=== PATIENT | male | born 1945 | race American Indian/Alaskan Native ===

== ENCOUNTER 2017-09-14 08:10 | Outpatient (CLI) | payer MEDICARE, OTHER ==
[2017-09-14 08:56] LABS: Blood Urea Nitrogen 18 mg/dL (9-20)
--- NOTE | 2017-09-14 10:22 | Cat Scan Report ---
CT lumbar spine with and without IV contrast: Low back pain and left leg pain. Transverse images are obtained from T12-S1 prior to and following IV contrast administration. Coronal and sagittal 2-D reformatted images obtained. The vertebral bodies are normal in alignment with preservation of the vertebral height. Anterior spondylosis is noted from L2-L5. The bones appear adequately mineralized. At T12-L1 there is a bone cyst in the right apophyseal bone with no effect on the articulation. The disc at L4-5 is markedly degenerative. There is no significant narrowing however of the joint space. The apophyseal joints at this level appear to be adequately patent and there is no overt swelling of the nerve roots. The remaining interspaces and discs appear generally unremarkable and the foraminal spaces appear generally adequate. No evidence of spinal stenosis. No evidence of abnormal vascularity with contrast. Impressions: Degenerative L4-5 disc. Recommendation: Consider MRI for more detailed evaluation of the L4-5 level.
== END 2017-09-14 08:11 | disposition home or self-care (01) ==
LOC: CT 08:10
PROVIDERS: ATTEND Internal Medicine
DX: M47.896 Other spondylosis, lumbar region (principal); M54.16 Radiculopathy, lumbar region; F17.210 Nicotine dependence, cigarettes, uncomplicated; I10 Essential (primary) hypertension; M79.605 Pain in left leg; Z95.5 Presence of coronary angioplasty implant and graft
CPT/HCPCS: 36415; 72133; 82565; 84520; Q9967

== ENCOUNTER 2019-10-17 06:22 | Day surgery (SDC) | payer MEDICARE, OTHER ==
[2019-10-17] MEDS ORDERED: SODIUM CHLORIDE 0.9% 1000 ML 1,000 ML IV SCH (07:00)
[2019-10-17] MEDS ORDERED: SODIUM CHLORIDE 0.9% 1000 ML 1,000 ML ONE (07:25)
--- NOTE | 2019-10-17 07:44 | Anesthesia Day of Surgery ---
Anesthesia Day of Surgery - Day of Surgery Patient Examined: Yes Patient H&P Reviewed: Yes Patient is NPO: Yes
--- NOTE | 2019-10-17 07:44 | Anesthesia Consultation ---
Anesthesia Consult and Med Hx Date of service: 10/17/19 - Airway Anesthetic Teeth Evaluation: Good, Partials ROM Head & Neck: Adequate Mental/Hyoid Distance: Adequate Mallampati Class: Class III Intubation Access Assessment: Possibly Difficult - Pulmonary Exam CTA: Yes - Cardiac Exam Cardiac Exam: RRR - Pre-Operative Health Status ASA Pre-Surgery Classification: ASA3 Proposed Anesthetic Plan: MAC - Pulmonary Hx Smoking: Yes (quit 1.5yrs ago) Hx Respiratory Symptoms: No SOB: No - Cardiovascular System Hx Hypertension: Yes Hx Coronary Artery Disease: Yes Hx Angina: No Hx Percutaneous Transluminal Coronary Angioplasty (PTCA): Yes (6yrs ago) Hx Cardia Arrhythmia: No - Central Nervous System CVA: No - Gastrointestinal Hx Gastroesophageal Reflux Disease: No - Endocrine Hx Renal Disease: No Hx Liver Disease: No Hx Insulin Dependent Diabetes: No Hx Non-Insulin Dependent Diabetes: No Hx Thyroid Disease: No - Other Systems Hx Obesity: No - Additional Comments Anesthesia Medical History Comments: No hx anesthetic complications. 4 mets functional capacity. No CP/BLAIR in many years.
[2019-10-17] MEDS ORDERED: propofoL 200 MG/20 ML VIAL IV ONE ×2 (08:16)
--- NOTE | 2019-10-17 08:50 | Procedure Note ---
Date of procedure: 10/17/19 Pre-op diagnosis: Colon Polyp Screening Post-op diagnosis: other (Small,Rectal Polyps (possibly Hyperplastic) otherwise normal colon (no Diverticular disease noted, no Internal Hemorrhoid noted)) Procedure: Colonoscopy with biopsy Anesthesia: MAC Surgeon: EMMANUEL PRADO Estimated blood loss: minimal Pathology: list Specimen disposition: to lab Condition: stable Disposition: same day (Avoid aspirin and NSAID for 4 days; otherwise resume home medication.)
[2019-10-17 10:01] VITALS: BP 148/71
--- NOTE | 2019-10-17 10:11 | Post Anesthesia Evaluation ---
- Post Anesthesia Evaluation Patient Participated: Yes Airway Patent: Yes Stable Respiratory Function: Yes Nausea/Vomiting: No Temp > 96.8F: Yes Pain Manageable: Yes Adequeate Hydration: Yes Anesthesia Complications: No
--- NOTE | 2019-11-01 08:49 | Operative Report ---
PROCEDURE: Colonoscopy with biopsy. INDICATIONS: A 74-year-old gentleman who had a colonoscopy done as part of colon polyp screening. Procedure was done in the GI lab with assistance of Anesthesia and the GI lab team. DESCRIPTION OF PROCEDURE: Initial rectal exam was unremarkable. Instrument was passed through the rectum onto the cecum, which was identified with the ileocecal valve and the appendiceal orifice. Visualization was fair. Cecum, ascending colon, transverse colon, descending colon, and sigmoid showed normal mucosa. There was no evidence of any diverticular disease or any polyp in most of the colon. In the rectum, however, there were several small polyps noted that were possibly hyperplastic that were removed by cold biopsy and on the retroverted view, no internal hemorrhoid was noted. There was minimum bleeding from the biopsy sites. ASSESSMENT: Colon polyp screening. Small rectal polyps, possibly hyperplastic. Otherwise normal colon mucosa. No diverticular disease noted. No internal hemorrhoids noted. The patient will be asked to avoid aspirin and aspirin-related products for the next few days. Otherwise, resume home medication and follow up in the office in 1-2 weeks' time. JOB# [id number] OMI/ROSA
== END 2019-10-17 06:23 | disposition home or self-care (01) ==
LOC: GIO 06:22
DX: Z12.11 Encounter for screening for malignant neoplasm of colon (principal); K62.1 Rectal polyp; F17.210 Nicotine dependence, cigarettes, uncomplicated; I25.10 Atherosclerotic heart disease of native coronary artery without angina pectoris; E78.00 Pure hypercholesterolemia, unspecified; I10 Essential (primary) hypertension; Z98.890 Other specified postprocedural states; Z79.82 Long term (current) use of aspirin; Z79.899 Other long term (current) drug therapy; Z95.5 Presence of coronary angioplasty implant and graft
CPT/HCPCS: 45380; 88305; J2704; J7030

== ENCOUNTER 2020-12-08 10:00 | Emergency (ER) | payer MEDICARE, OTHER ==
[2020-12-08 10:56] VITALS: BP 115/82
--- NOTE | 2020-12-08 11:08 | Emergency Department Report ---
- General Chief complaint: Skin/Abscess/Foreign Body Stated complaint: BOIL BEHIND (L) EAR BUSTED Time Seen by Provider: 12/08/20 11:07 Source: patient Mode of arrival: Ambulatory Limitations: No Limitations - History of Present Illness Initial comments: Patient is a 75-year-old male presents emergency room with complaints of an abscess behind the left ear that began 5 to 6 days ago. He states that last night it opened and drained on its own. He states that he has had this multiple times in the same area. He denies any ear pain, fever, nausea, vomiting, diarrhea, chills. He denies any medication allergies. PMHx HTN and HLD. - Related Data Home Medications Medication Instructions Recorded Confirmed Last Taken Aspirin [Aspirin TAB] 325 mg PO DAILY 07/29/14 07/29/14 10/12/19 09:00 Pravastatin [Pravachol] 40 mg PO QHS 07/29/14 07/29/14 10/14/19 20:00 lisinopriL [Zestril] 20 mg PO QDAY 07/29/14 07/29/14 10/12/19 09:00 Previous Rx's Medication Instructions Recorded Last Taken Type Ibuprofen [Motrin 600 MG tab] 600 mg PO Q8H PRN #20 tablet 07/29/14 10/12/19 17:00 Rx traMADoL [Ultram] 50 mg PO Q6HR PRN #10 tablet 07/29/14 Unknown Rx Clindamycin [Clindamycin CAP] 450 mg PO BID 7 Days #63 capsule 12/08/20 Unknown Rx Mupirocin [Bactroban 2% OINT] 1 applic TP TID #1 tube 12/08/20 Unknown Rx Allergies Allergy/AdvReac Type Severity Reaction Status Date / Time No Known Allergies Allergy Unverified 07/29/14 14:58 Abscess Boil HPI - HPI Chief Complaint: Skin/Abscess/Foreign Body Stated Complaint: BOIL BEHIND (L) EAR BUSTED Time Seen by Provider: 12/08/20 11:07 Home Medications: Home Medications Medication Instructions Recorded Confirmed Last Taken Aspirin [Aspirin TAB] 325 mg PO DAILY 07/29/14 07/29/14 10/12/19 09:00 Pravastatin [Pravachol] 40 mg PO QHS 04/28/15 04/28/15 07/13/20 20:00 lisinopriL [Zestril] 20 mg PO QDAY 07/29/14 07/29/14 10/12/19 09:00 Previous Rx's Medication Instructions Recorded Last Taken Type Ibuprofen [Motrin 600 MG tab] 600 mg PO Q8H PRN #20 tablet 07/29/14 10/12/19 17:00 Rx traMADoL [Ultram] 50 mg PO Q6HR PRN #10 tablet 07/29/14 Unknown Rx Clindamycin [Clindamycin CAP] 450 mg PO BID 7 Days #63 capsule 12/08/20 Unknown Rx Mupirocin [Bactroban 2% OINT] 1 applic TP TID #1 tube 12/08/20 Unknown Rx Allergies/Adverse Reactions: Allergies Allergy/AdvReac Type Severity Reaction Status Date / Time No Known Allergies Allergy Unverified 07/29/14 14:58 ED Review of Systems ROS: Stated complaint: BOIL BEHIND (L) EAR BUSTED Other details as noted in HPI Comment: All other systems reviewed and negative ED Past Medical Hx - Past Medical History Hx Hypertension: Yes Hx Liver Disease: No Hx Renal Disease: No Additional medical history: CAD, Hx. aneurysm - Surgical History Hx Coronary Stent: Yes Additional Surgical History: Surgery for aneurysm in 1979 - Social History Smoking Status: Current Every Day Smoker - Medications Home Medications: Home Medications Medication Instructions Recorded Confirmed Last Taken Type Aspirin [Aspirin TAB] 325 mg PO DAILY 07/29/14 07/29/14 10/12/19 09:00 History Ibuprofen [Motrin 600 MG tab] 600 mg PO Q8H PRN #20 tablet 07/29/14 10/12/19 17:00 Rx Pravastatin [Pravachol] 40 mg PO QHS 07/29/14 07/29/14 10/14/19 20:00 History lisinopriL [Zestril] 20 mg PO QDAY 07/29/14 07/29/14 10/12/19 09:00 History traMADoL [Ultram] 50 mg PO Q6HR PRN #10 tablet 07/29/14 Unknown Rx Clindamycin [Clindamycin CAP] 450 mg PO BID 7 Days #63 capsule 12/08/20 Unknown Rx Mupirocin [Bactroban 2% OINT] 1 applic TP TID #1 tube 12/08/20 Unknown Rx ED Physical Exam - General Limitations: No Limitations General appearance: alert, in no apparent distress - Head Head exam: Present: atraumatic, normocephalic - Eye Eye exam: Present: normal appearance - ENT ENT exam: Present: mucous membranes moist, other (2 cm abscess present to the left posterior auricular region with 1 cm opening with purulent drainage, mild surrounding erythema, no mastoid ttp, no necrosis, no crepitus) - Respiratory Respiratory exam: Absent: respiratory distress, accessory muscle use - Neurological Exam Neurological exam: Present: alert, oriented X3 - Psychiatric Psychiatric exam: Present: normal affect, normal mood - Skin Skin exam: Present: warm, dry ED Course Vital Signs 12/08/20 10:54 Temperature 98.7 F Pulse Rate 51 L Respiratory 16 Rate Blood Pressure 115/82 [Right] O2 Sat by Pulse 98 Oximetry ED Medical Decision Making - Medical Decision Making Patient is a 75-year-old male presents emergency room with complaints of an abscess behind the left ear that began 5 to 6 days ago. He states that last night it opened and drained on its own. He states that he has had this multiple times in the same area. He denies any ear pain, fever, nausea, vomiting, diarrhea, chills. He denies any medication allergies. PMHx HTN and HLD. Vitals are stable. On exam:2 cm abscess present to the left posterior auricular region with 1 cm opening with purulent drainage, mild surrounding erythema, no mastoid ttp, no necrosis, no crepitus. Able to manually express purulent drainage and irrigate with saline and placed a sterile dressing. Examination appears consistent with open and draining abscess, does not need I&D at this time. There is mild surrounding cellulitis. Patient will be covered with antibiotics. Advised patient Please use medication as prescribed. Please keep area clean and dry. Wash with antibacterial soap and water twice a day. No hot tub, no pool. Follow-up with a primary care doctor for reexamination. Return to emergency room for new or worsening symptoms. Critical care attestation.: If time is entered above; I have spent that time in minutes in the direct care of this critically ill patient, excluding procedure time. ED Disposition Clinical Impression: Abscess Cellulitis Qualifiers: Site of cellulitis: neck Qualified Code(s): L03.221 - Cellulitis of neck Disposition: HOME / SELF CARE / HOMELESS Is pt being admited?: No Does the pt Need Aspirin: No Condition: Stable Instructions: Skin Abscess, Cellulitis, Adult Additional Instructions: Please use medication as prescribed. Please keep area clean and dry. Wash with antibacterial soap and water twice a day. No hot tub, no pool. Follow-up with a primary care doctor for reexamination. Return to emergency room for new or worsening symptoms. Prescriptions: Mupirocin [Bactroban 2% OINT] 1 applic TP TID #1 tube Clindamycin [Clindamycin CAP] 450 mg PO BID 7 Days #63 capsule Referrals: your, primary care doctor [Other] - 2-3 Days Time of Disposition: 11:10 Print Language: [place]AST [place]
== END 2020-12-08 11:29 | disposition home or self-care (01) ==
LOC: ED 10:00
DX: L02.91 Cutaneous abscess, unspecified (principal); L03.221 Cellulitis of neck; I10 Essential (primary) hypertension; F17.200 Nicotine dependence, unspecified, uncomplicated
CPT/HCPCS: 99282; 99283